=== PATIENT | male | born 1985 | race Caucasian/White ===

== ENCOUNTER 2017-02-06 16:44 | Emergency (ER) | payer OTHER ==
--- NOTE | 2017-02-06 16:58 | EDM.PDOC ---
ED HPI GENERAL MEDICAL PROBLEM - General Chief Complaint: Genitourinary Problem Stated Complaint: GENITAL AREA INFECTION?, [id number] Time Seen by Provider: 02/06/17 16:57 Source of Information: Reports: Patient, RN, RN Notes Reviewed History Limitations: Reports: No Limitations - History of Present Illness INITIAL COMMENTS - FREE TEXT/NARRATIVE: C/O skin infection on the penis. Last week pt noticed a molluskum contagiosum on the skin of the left distal penis, and he pinched it off with his finger nails. Approx. 2 days later the area was a little red. Then today he woke to find the area was swollen, tender, and the redness increased in size. Pt denies fevers. Admits to brief episode of chills, and inguinal lymph nodes. Onset: Gradual Duration: Getting Worse Quality: Reports: Ache Severity: Moderate Improves with: Reports: None Worsens with: Reports: None Associated Symptoms: Reports: No Other Symptoms - Related Data Allergies Allergy/AdvReac Type Severity Reaction Status Date / Time No Known Allergies Allergy Verified 02/06/17 17:12 Home Meds: Home Meds . [No Known Home Meds] 02/06/17 [History] Past Medical History - Past Health History Medical/Surgical History: Denies Medical/Surgical History Social & Family History - Family History Family Medical History: Noncontributory - Living Situation & Occupation Living situation: Reports: , with Family Occupation: Employed ED ROS GENERAL - Review of Systems Review Of Systems: ROS reveals no pertinent complaints other than HPI. ED EXAM, RENAL/ - Physical Exam Exam: See Below Exam Limited By: No Limitations General Appearance: Alert, WD/WN, No Apparent Distress Respiratory/Chest: No Respiratory Distress GI/Abdominal: Normal Bowel Sounds, Soft, Non-Tender (Male) Exam: No Hernia, Inguinal Lymphadenopathy (mild, L>Rt), Penile Lesions (skin of left distal penis with 2cm x 2.5cm area of erythema with a central round ulcerated lesion <1cm with a small crusted yellowish center.). No : Scrotal Swelling, Suprapubic Fullness, Testicular Tenderness (L), Testicular Tenderness (R), Urethral Discharge Neurological: Alert, Oriented, No Motor/Sensory Deficits Psychiatric: Normal Affect, Normal Mood Course - Vital Signs Last Recorded V/S: Last Vital Signs Temp 36.1 C 02/06/17 17:09 Pulse 60 02/06/17 17:09 Resp 16 02/06/17 17:09 BP 125/79 02/06/17 17:09 Pulse Ox 100 02/06/17 17:09 - Orders/Labs/Meds Orders: Active Orders 24 hr Category Date Time Status CHLAMYDIA TRACHOMATIS/GC AMPLF Routine Lab 02/06/17 17:24 Received CULTURE WOUND [RM] Stat Lab 02/06/17 17:06 Received UA W/MICROSCOPIC [URIN] Stat Lab 02/06/17 17:24 Results Labs: Laboratory Tests 02/06/17 Range/Units 17:24 Urine Color Yellow (YELLOW) Urine Appearance Clear (CLEAR) Urine pH 7.0 (5.0-9.0) Ur Specific [place] 1.010 (1.005-1.030) Urine Protein Negative (NEGATIVE) Urine Glucose (UA) Negative (NEGATIVE) Urine Ketones Negative (NEGATIVE) Urine Occult Blood Trace-intact H (NEGATIVE) Urine Nitrite Negative (NEGATIVE) Urine Bilirubin Negative (NEGATIVE) Urine Urobilinogen 0.2 (0.2-1.0) mg/dL Ur Leukocyte Esterase Negative (NEGATIVE) Meds: Medications Discontinued Medications Generic Name Dose Route Start Last Admin Trade Name Freq PRN Reason Stop Dose Admin Cephalexin 500 mg 02/06/17 17:14 02/06/17 17:19 Keflex PO 02/06/17 17:15 500 mg ONETIME ONE Administration Clindamycin HCl 300 mg 02/06/17 17:14 02/06/17 17:20 Cleocin PO 02/06/17 17:15 300 mg ONETIME ONE Administration Departure - Departure Time of Disposition: 17:41 Disposition: Home, Self-Care 01 Condition: good Clinical Impression: Cellulitis of penis - Discharge Information Instructions: Cellulitis, Adult Forms: ED Department Discharge Additional Instructions: Rx: Clindamycin 300mg Rx: Cephalexin 500mg Rx: Bactroban ointment 2% Follow up in clinic with your doctor in 3 to 4 days for recheck. Return to ER if worse at any time. NO RUNNING OR P.T. TRAINING FOR 10 DAYS. - My Orders Last 24 Hours: My Active Orders 02/06/17 17:06 CULTURE WOUND [RM] Stat 02/06/17 17:24 CHLAMYDIA TRACHOMATIS/GC AMPLF Routine UA W/MICROSCOPIC [URIN] Stat - Assessment/Plan Last 24 Hours: My Active Orders 02/06/17 17:06 CULTURE WOUND [RM] Stat 02/06/17 17:24 CHLAMYDIA TRACHOMATIS/GC AMPLF Routine UA W/MICROSCOPIC [URIN] Stat
[2017-02-06 17:11] VITALS: BP 125/79
[2017-02-06] MEDS ORDERED: Clindamycin HCl 150 MG Cap PO ONE (17:14)
[2017-02-06] MEDS ORDERED: Cephalexin 500 MG Cap PO ONE (17:14)
== END 2017-02-06 18:10 | disposition home or self-care (01) ==
LOC: DL.ED 16:44
DX: N48.22 Cellulitis of corpus cavernosum and penis (principal)
CPT/HCPCS: 81001; 87070; 87491; 87591; 99283; A9270